=== PATIENT | male | born 1965 | race Two or more races ===

== ENCOUNTER 2021-07-26 09:00 | Outpatient (CLI) | payer OTHER | END 2021-07-26 09:15 | disposition home or self-care (01) | LOC: PPH VACUNA 09:00 | PROVIDERS: ATTEND Emergency Medicine Pediatric Emergency Medicine | DX: Z23 Encounter for immunization (principal) ==

== ENCOUNTER 2021-12-20 08:00 | Outpatient (CLI) | payer OTHER | END 2021-12-20 08:30 | disposition home or self-care (01) | LOC: PPH VACUNA 08:00 | PROVIDERS: ATTEND Emergency Medicine Pediatric Emergency Medicine | DX: Z23 Encounter for immunization (principal) ==

== ENCOUNTER 2023-01-12 07:31 | Outpatient (CLI) | payer OTHER | END 2023-01-12 12:39 | disposition home or self-care (01) | LOC: RAD 07:31 | DX: Z13.6 Encounter for screening for cardiovascular disorders (principal) ==

== ENCOUNTER 2025-04-13 07:23 | Emergency (ER) | payer OTHER ==
[~2025-04-13] VITALS: Ht 177.8 cm; Wt 70.3 kg
[2025-04-13] MEDS ORDERED: ROSUVASTATIN CAL5 MG PO (07:34)
[2025-04-13] MEDS ORDERED: ZETIA10 MG (07:34)
[2025-04-13 10:44] LABS: BASO % 1.1 % (0.1-1.2); EOS # 0.18 (0.04-0.54); EOS % 2.3 % (0.7-7.0); LYMPH # 2.32 (1.18-3.74); LYMPH % 29.5 % (19.3-53.1); MEAN PLATELET VOLUME 9.60 fl (9.4-12.4); MONO # 0.64 (0.24-0.82); MONO % 8.1 % (4.7-12.5); NEUT # 4.63 (1.56-6.13); NEUT % 58.9 % (34.0-71.1); RED CELL DISTRIBUTION WIDTH 12.7 % (11.6-14.4)
[2025-04-13 11:39] LABS: ALT/SGPT 56.0 U/L (12-78); AST/SGOT 37.0 U/L (15-37); BILIRUBIN TOTAL 0.49 mg/dL (0.3-1.2); BUN CREA RATIO 13.0 (7.0-25.0); CREATININE SERUM 1.2 mg/dL (0.70-1.30); GFR 62.4; GLOBULINA 3.4 G/DL (2.4-3.5); OSMOLALITY SERUM 283.0 MOSM/KG (275-295)
[2025-04-13 11:41] LABS: GLUCOSE FASTING 105.0 mg/dL (65-100)
[2025-04-13] MEDS ORDERED: DICYCLOMINE HCL 20 MG TABLET PO ONE (14:15)
[2025-04-13] MEDS ORDERED: ACETAMINOPHEN 500 MG GEL..CAP PO ONE (14:15)
[2025-04-13] MEDS ORDERED: CIPRO500 MG PO (14:20)
[2025-04-13] MEDS ORDERED: DICY20TA PO (14:20)
[2025-04-13] MEDS ORDERED: ACETAMINOPHEN500 M1 PO (14:20)
== END 2025-04-13 14:31 | disposition home or self-care (01) ==
LOC: ER 07:29
PROVIDERS: Preventive Medicine Public Health & General Preventive Medicine
DX: K52.89 Other specified noninfective gastroenteritis and colitis (principal); E78.49 Other hyperlipidemia